=== PATIENT | female | born 1995 | race Caucasian/White ===

== ENCOUNTER 2016-08-31 19:36 | Emergency (ER) | payer BC ==
[~2016-08-31] VITALS: Ht 167.6 cm; Wt 54.4 kg
[2016-08-31] MEDS ORDERED: WELLBUTRIN (19:58)
[2016-08-31] MEDS ORDERED: ATIVAN (19:58)
[2016-08-31] MEDS ORDERED: ANTIBIOTIC (19:58)
[2016-08-31] MEDS ORDERED: ABILIFY (19:58)
[2016-08-31] MEDS ORDERED: AMBIEN (19:58)
--- NOTE | 2016-08-31 20:04 | NUR ---
5 sutures removed, 1 from right wrist, 1 from right middle finger, 3 from right ankle. pt tolerated procedure well, denies any pain.
--- NOTE | 2016-08-31 20:05 | NUR ---
Patient discharged to home in stable conditon. Written and verbal after care instructions given. Patient verbalizes understanding of instructions. pt left with stable gait.
--- NOTE | 2016-08-31 20:05 | NUR ---
Patient discharged to home in stable conditon. Written and verbal after care instructions given. Patient verbalizes understanding of instructions.
[2016-08-31 20:06] VITALS: BP 103/59
== END 2016-08-31 20:06 | disposition home or self-care (01) ==
LOC: ER 19:42
DX: S61.213D Laceration without foreign body of left middle finger without damage to nail, subsequent encounter (principal); F10.20 Alcohol dependence, uncomplicated; F17.200 Nicotine dependence, unspecified, uncomplicated; Z88.1 Allergy status to other antibiotic agents; X58.XXXD Exposure to other specified factors, subsequent encounter; Y99.8 Other external cause status; Y92.89 Other specified places as the place of occurrence of the external cause
CPT/HCPCS: A4663